=== PATIENT | male | born 1980 | race Caucasian/White ===

== ENCOUNTER 2016-11-17 13:13 | Inpatient (IN) | payer OTHER ==
[~2016-11-17] VITALS: Ht 162.6 cm; Wt 79.0 kg
[2016-11-17] MEDS ORDERED: LTHSR/300 PO (14:00)
[2016-11-17] MEDS ORDERED: ACET-749 PO (14:00)
[2016-11-17] MEDS ORDERED: RMR15 PO (14:00)
[2016-11-17] MEDS ORDERED: AMOX875T PO (14:00)
[2016-11-17] MEDS ORDERED: [UNRECOGNIZED DRUG - OTHER] INJ (14:00)
[2016-11-17] MEDS ORDERED: HYDR50CA2 PO (14:00)
[2016-11-17] MEDS ORDERED: AMPICILLIN/SULBACTAM SOD INJ 3,000 MG in SODIUM CHLORIDE 0.9% 100ML 100 ML IV STA (14:19)
[2016-11-17] MEDS ORDERED: SODIUM CHLORIDE 0.9% 1000ML 1,000 ML IV STA (14:19)
[2016-11-17] MEDS ORDERED: ONDANSETRON INJ 2 MG/ML 2 ML VIAL IV STA (14:50)
[2016-11-17] MEDS ORDERED: MoRPHine SULFATE 4 MG/ML 1 ML CARP\\VIAL IV STA (14:50)
[2016-11-17 15:05] LABS: BASO % 0.2 %; BASO ABS # 0.01 K/uL (0-0.2); COMPLETE YES; EOS % 0.9 %; HEMATOCRIT 45.4 % (42-52); IG% 0.2 %; LYMPH % 30.2 %; LYMPH ABS # 1.65 K/uL (1.2-3.4); MEAN CELL VOLUME 87.3 fL (80-100); MEAN CORPUSCULAR HEMOGLOBIN 30.6 pg (25-34); MEAN PLATELET VOLUME 9.6 fL (7.4-10.4); MONO % 8.8 %; NEUT % 59.7 %; PLATELET COUNT 230 K/uL (130-400); WHITE BLOOD COUNT 5.47 K/uL (4.8-10.8)
[2016-11-17 15:21] LABS: BUN/CREATININE RATIO 16.6 (10-20); CALCIUM 8.5 mg/dl (8.5-10.1); CREATININE 0.89 mg/dl (0.60-1.40); POTASSIUM 4.2 mmol/L (3.5-5.1)
[2016-11-17] MEDS ORDERED: DIPHTHERIA/TETANUS/PERTUSSIS 0.5 ML SYR/VIAL IM. ONE (15:30)
--- NOTE | 2016-11-17 16:11 | DIAGNOSTIC IMAGING REPORT ---
RIGHT FOOT 3 VIEWS CLINICAL HISTORY: First toe infection. FINDINGS: 3 views of the right foot are obtained. No prior studies are available for comparison at the time of dictation. The skeletal structures are well mineralized. No fracture is seen. No bony erosion or periostitis is identified. The joint spaces are preserved. Soft tissue edema is present in the forefoot. IMPRESSION: Soft tissue edema is noted in the forefoot. No acute bony abnormality is identified. Electronically signed by: Arie Vernon M.D. 11/17/2016 4:10 PM Dictated Date/Time: 11/17/2016 4:08 PM
--- NOTE | 2016-11-17 16:47 | EMERGENCY ROOM VISIT NOTE ---
History First contact with patient: 14:11 Chief Complaint: INFECTION Stated Complaint: RIGHT FOOT/TOE IS INFECTED Nursing Triage Summary: Swelling to the foot and ankle. Right great toe with cut ingrown toenail. Pulse present History of Present Illness The patient is a 36 year old male who presents to the Emergency Room via escort by 2 guards with complaints of "right foot/toe is infected". The patient states that 3 months ago he had an ingrown toenail of which she removed with nail clippers on his own. He states then that it began to hurt and pus began to be discharged from the toe. He then became concerned and put in for a sick call with the medical staff. He notes that he was placed upon antibiotics for 10 days, and went back because it persisted and was worse therefore he was placed on a different antibiotic for another 10 days. He states then 2 or 3 days ago while at [facility] he had the nail partially removed and replaced about on Augmentin. He has been on the Augmentin for 2 or 3 days with minimal improvement. He notes today that the toe as well as the right foot up to the ankle is now painful, swollen and hot to the touch. He is not sure if there is any drainage over the past 2 days as it has been covered with a bandage. He denies any fevers, chills, nausea, vomiting, chest pain, shortness of breath, abdominal pain. He rates the overall pain in the toe and foot as a 10/10. One of the accompanied Guards confirms the patient's tetanus status is not up-to- date. The patient has been referred here and noted to initially be on doxycycline starting on 11/06/2016 through 11/15/2016. He was then started on Augmentin 500/ 125 twice a day on 11/16/2016 and is to end this on 11/26/2016. There is concern for osteomyelitis. Review of Systems A complete 10-point Review of Systems was discussed with the patient, with pertinent positives and negatives listed in the History of Present Illness. All remaining Review of Systems questions can be considered negative unless otherwise specified. Past Medical/Surgical History Medical Problems: (1) acute on chronic right toe infection/cellulitis Hepatitis C Family History Unremarkable Social History Smoking Status: Never Smoker Social History: Patient is currently incarcerated at [facility]. Current/Historical Medications Scheduled Amoxicillin & Pot Clavulanate (Augmentin 875-125 mg), 1 TAB PO BID Hydroxyzine Pamoate (Vistaril), 50 MG PO HS [place] Carbonate ([place] Carbonate), 300 MG PO BID Lorazepam (Lorazepam), 1 MG INJ DAILY Mirtazapine (Mirtazapine), 30 MG PO HS Scheduled PRN Acetaminophen/Codeine (Tylenol W/Codeine #3), 2 TAB PO TID PRN for Pain Allergies Coded Allergies: Fish (Unverified Allergy, Unknown, UNKNOWN, 11/17/16) Physical Exam Vital Signs Date Time Temp Pulse Resp B/P Pulse Ox O2 Delivery O2 Flow Rate FiO2 11/17/16 17:01 68 18 107/76 98 Room Air 11/17/16 15:29 76 18 100/60 94 Room Air 11/17/16 13:22 36.9 83 18 109/67 94 Room Air Physical Exam VITAL SIGNS - Vital signs and nursing notes were reviewed. The patient is afebrile, normotensive, non-tachycardic and is saturating well on room air 94%. GENERAL -36-year-old male appearing his stated age who is in no acute distress. Communicates well with provider and answers questions appropriately. SKIN -the right great toe is erythematous and edematous without purulent discharge at this time. There is tenderness of this region as well as into the right foot and medial ankle. There is no lymphangitic streaking noted. HEAD - NC/AT. EXTREMITIES - No clubbing or peripheral cyanosis. No pretibial edema present. Patient is neurovascularly intact in the right lower extremity. +5/5 strength noted in UE/LE bilaterally. Medical Decision & Procedures ER Provider Diagnostic Interpretation: [~ rep ct add3]] RIGHT FOOT 3 VIEWS CLINICAL HISTORY: First toe infection. FINDINGS: 3 views of the right foot are obtained. No prior studies are available for comparison at the time of dictation. The skeletal structures are well mineralized. No fracture is seen. No bony erosion or periostitis is identified. The joint spaces are preserved. Soft tissue edema is present in the forefoot. IMPRESSION: Soft tissue edema is noted in the forefoot. No acute bony abnormality is identified. Electronically signed by: Arie Vernon M.D. 11/17/2016 4:10 PM Dictated Date/Time: 11/17/2016 4:08 PM Laboratory Results 11/17/16 14:45 Red Blood Count 5.20, Mean Corpuscular Volume 87.3, Mean Corpuscular Hemoglobin 30.6, Mean Corpuscular Hemoglobin Concent 35.0, Mean Platelet Volume 9.6, Neutrophils (%) (Auto) 59.7, Lymphocytes (%) (Auto) 30.2, Monocytes (%) (Auto) 8.8, Eosinophils (%) (Auto) 0.9, Basophils (%) (Auto) 0.2, Neutrophils # (Auto) 3.27, Lymphocytes # (Auto) 1.65, Monocytes # (Auto) 0.48, Eosinophils # (Auto) 0.05, Basophils # (Auto) 0.01 11/17/16 14:45 Test 11/17/16 14:45 White Blood Count 5.47 K/uL (4.8-10.8) Red Blood Count 5.20 M/uL (4.7-6.1) Hemoglobin 15.9 g/dL (14.0-18.0) Hematocrit 45.4 % (42-52) Mean Corpuscular Volume 87.3 fL (80-100) Mean Corpuscular Hemoglobin 30.6 pg (25-34) Mean Corpuscular Hemoglobin Concent 35.0 g/dl (32-36) Platelet Count 230 K/uL (130-400) Mean Platelet Volume 9.6 fL (7.4-10.4) Neutrophils (%) (Auto) 59.7 % Lymphocytes (%) (Auto) 30.2 % Monocytes (%) (Auto) 8.8 % Eosinophils (%) (Auto) 0.9 % Basophils (%) (Auto) 0.2 % Neutrophils # (Auto) 3.27 K/uL (1.4-6.5) Lymphocytes # (Auto) 1.65 K/uL (1.2-3.4) Monocytes # (Auto) 0.48 K/uL (0.11-0.59) Eosinophils # (Auto) 0.05 K/uL (0-0.5) Basophils # (Auto) 0.01 K/uL (0-0.2) RDW Standard Deviation 42.3 fL (36.4-46.3) RDW Coefficient of Variation 13.2 % (11.5-14.5) Immature Granulocyte % (Auto) 0.2 % Immature Granulocyte # (Auto) 0.01 K/uL (0.00-0.02) Erythrocyte Sedimentation Rate 3 mm/hr (0-14) Prothrombin Time 10.7 SECONDS (9.0-12.0) Prothromb Time International Ratio 1.0 (0.9-1.1) Activated Partial Thromboplast Time 26.8 SECONDS (21.0-31.0) Partial Thromboplastin Ratio 1.0 Anion Gap 6.0 mmol/L (3-11) Est Creatinine Clear Calc Drug Dose 111.1 ml/min Estimated GFR () 129.3 Estimated GFR (Non- 111.6 BUN/Creatinine Ratio 16.6 (10-20) Uric Acid 4.3 mg/dl (2.6-7.2) Calcium Level 8.5 mg/dl (8.5-10.1) C-Reactive Protein 0.51 mg/dl (0-0.29) Medications Administered Medications (Trade) Dose Ordered Sig/Radha Route Start Time Stop Time Status Last Admin Dose Admin Sodium Chloride 1,000 ml @ 999 mls/hr Q1H1M STAT IV 11/17/16 14:19 11/17/16 15:19 DC 11/17/16 14:19 999 MLS/HR Ampicillin Sodium/ Sulbactam Sodium/ Sodium Chloride (Unasyn Inj/Nss 100ml) 108 ml @ 200 mls/hr NOW STAT IV 11/17/16 14:19 11/17/16 14:51 DC 11/17/16 15:25 200 MLS/HR Morphine Sulfate (MoRPHine SULFATE INJ) 4 mg NOW STAT IV 11/17/16 14:50 11/17/16 14:51 DC 11/17/16 15:24 4 MG Ondansetron HCl (Zofran Inj) 4 mg NOW STAT IV 11/17/16 14:50 11/17/16 14:51 DC 11/17/16 15:24 4 MG Diphtheria/ Pertussis/Tetanus Vacc (Adacel Inj) 0.5 ml ONCE ONCE IM. 11/17/16 15:30 11/17/16 15:31 DC 11/17/16 15:25 0.5 ML Acetaminophen (Tylenol Tab) 500 mg NOW STAT PO 11/17/16 16:49 11/17/16 16:50 DC 11/17/16 16:58 500 MG Medical Decision Patient was seen and evaluated as above. After obtaining a thorough history and physical examination is apparent the patient had failed outpatient management on oral antibiotics. He presents with what appears to be an infection of the right great toe with edema and warmth extending into the foot and right ankle. Stat IV access was obtained, he was hydrated with a liter of normal saline and 3 g Unasyn were obtained after verifying no allergies. He did request something for pain therefore was given morphine and Zofran for any potential nausea. His vital signs are stable, with no evidence of sepsis, however blood cultures were drawn given the case presentation. His CBC is completed and unremarkable. PRP reveal slight elevation of chloride. Stable kidney function. Kidney function was assessed to verify ability to process IV medication. The patient then noted that immediately after receiving morphine he developed a headache, of which was not the worst of his life. He'll be given 500 mg of Tylenol for that pain. He was also given ice for the foot. Radiograph does not reveal any evidence of osteomyelitis. Given the patient has been on antibiotics for some time, I do believe it is appropriate to further his care with inpatient management and IV antibiotics. The case was discussed with my attending, and the decision was made to admit the patient for further evaluation and management. At 4:37 PM I did discuss the case with Dr. Horta, hospitalist who agreed to evaluate the patient for further care and management. Please refer to further documentation by hospital staff regarding his stay. I do believe he is stable for admission. Patient notes his tetanus is not up-to-date and therefore he was given an Adacel injection. Upon examination there is evidence of cellulitis of the right great toe extending into the foot, without evidence of drainable abscess. In the evaluation and treatment of this patient the following differential diagnoses were entertained: Cellulitis, sepsis, abscess, contusion, among others. Impression Primary Impression: Cellulitis of toe of right foot Departure Information Dispostion Admitted as an inpatient Condition FAIR Referrals Johnathan DORANTES (PCP) Patient Instructions My [facility]
[2016-11-17] MEDS ORDERED: ACETAMINOPHEN 500 MG TAB PO STA (16:49)
[2016-11-17 17:01] VITALS: O2SAT 98
[2016-11-17] MEDS ORDERED: ZOLPIDEM TARTRATE 5 MG TAB PO PRN (17:15)
[2016-11-17] MEDS ORDERED: ONDANSETRON INJ 2 MG/ML 2 ML VIAL IV PRN (17:15)
[2016-11-17] MEDS ORDERED: ALUMINUM/MAGNESIUM/SIMETH (MAALOX MAX) 30 ML UDC PO PRN (17:15)
[2016-11-17] MEDS ORDERED: MAGNESIUM HYDROXIDE SUSP 30 ML UDC PO PRN (17:15)
[2016-11-17] MEDS ORDERED: ACETAMINOPHEN 325 MG TAB PO PRN (17:15)
--- NOTE | 2016-11-17 17:32 | History and Physical ---
History & Physical Date of Service Nov 17, 2016. History & Physical acute on chronic right toe infection/cellulitis, [id number]
[2016-11-17 17:41] LABS: C-REACTIVE PROTEIN 0.51 mg/dl (0-0.29); URIC ACID 4.3 mg/dl (2.6-7.2)
[2016-11-17] MEDS ORDERED: POLYETHYLENE (MIRALAX) 17 GM PACK PO PRN (18:00)
[2016-11-17] MEDS: ACETAMINOPHEN/CODEINE 300/30MG TAB PO PRN (18:14)
[2016-11-17 18:17] LABS: PROTHROMBIN TIME (PATIENT) 10.7 SECONDS (9.0-12.0)
--- NOTE | 2016-11-17 18:40 | HISTORY & PHYSICAL EXAMINATION ---
DATE OF ADMISSION: 11/17/2016 This is a level 2 inpatient admission, 31 minutes. CHIEF COMPLAINT: Right toe infection. HISTORY OF PRESENT ILLNESS: The patient is a 36-year-old white male, coming with the above chief complaint. He reported history of hepatitis C. He complained about right toe infected. The right toe has problem starting from 3 months ago with ingrowing toenails which was removed with nail clippers on his own. He states it began to hurt and pus began to discharge from the toe. He was placed on antibiotics for 10 days, but condition of pain, redness and pus persisted. He was treated with Augmentin for 2-3 days with only minimal improvement. Two days ago, the toe was seen by a PA in [facility] He had the toenail partially removed. Like I mentioned, he has been on Augmentin for 2 days. Today, patient reports right toe has more swelling, hot and tender associated with expansion of the erythema and redness through the total foot and up to the right ankle. He denied fever or chills. Denied cough, sputum, shortness of breath or palpitation. Denied chest pain or lower extremity swelling. Denied nausea, vomiting, abdominal pain, diarrhea or constipation. Denied dysuria, urgency or frequencies. Denied facial droop or slurry speeches. In the Emergency Room, he was given Unasyn. PAST MEDICAL HISTORY: Includes hepatitis C. FAMILY HISTORY: Not remarkable. SOCIAL HISTORY: Never smoked. Denied alcohol abuse disorder, denied illicit drug abuse. MEDICATIONS: Prior to admission include; Augmentin 875/125 mg one tab p.o. b.i.d., Vistaril 50 mg p.o. at bedtime, lithium carbonate 300 mg p.o. b.i.d., lorazepam 1 mg p.o. daily, mirtazapine 30 mg p.o. at bedtime. As needed medications include Tylenol with codeine 2 tabs p.o. t.i.d. p.r.n. for the pain. ALLERGIES: TO FISH. REVIEW OF SYSTEMS: Please see HPI, otherwise 14-point organ system review negative. PHYSICAL EXAMINATION: VITAL SIGNS: Temperature is 36.9, pulse 83, respiratory rate 18, blood pressure 109/67, pulse ox was 94% on room air. GENERAL: The patient is a white male, awake, alert and orientated. Vital signs are stable, afebrile. HEAD: Normocephalic. EYES: Pupils are equal, round and responds to light. EARS: Normal. NOSE: Normal. NECK: Supple. Thyroid; no enlargement. Trachea; midline. LUNGS: Decreased breathing sounds. There was no wheezing, rhonchi or crackles. ABDOMEN: Soft, nontender. Bowel sound was positive. Bilateral CVA was nontender HEART: Regular rhythm S1, S2, has no murmur. GENITOURINARY AND RECTAL: Deferred. EXTREMITIES: Left lower extremity was not remarkable. Right toe has drainage in the tip with erythema and swelling and hot and tender. Like I mentioned, the erythema and swelling was throughout the whole foot and up to the ankle area and mild tenderness. There was mild swelling in the calf area. NEUROLOGIC: Cranial nerve II-XII was intact. There was no local deficits. LABORATORY STUDIES: WBC 5.7, hemoglobin 15, platelet 230,000. Neutrophil was 59%. BMP was within normal limits. IMAGING STUDIES: Foot x-ray which was done in the Emergency Room, there was some soft tissue edema noted in the forefoot. No acute bony abnormalities identified. ASSESSMENT AND PLAN: A 36-year-old white male, with the condition as seen below: 1. Right toe chronic infection, getting worse, associated with right foot and ankle cellulitis. 2. Failed outpatient oral antibiotic treatment. 3. Possible anxiety and depression. Because of the right toe chronic infection which is getting worse, it has been 3 months; I will order MRI to rule out osteomyelitis. Because the right calf has some swelling and red, I want to order Doppler ultrasound to rule out DVT. There was obvious cellulitis and infection going on. Other differential diagnoses include gout. Therefore, I will check uric acid levels. We will continue Unasyn IV. We will check ESR and CRP and we will see the response. DVT prophylaxis is covered. GI prophylaxis is covered. will follow up MRI results. I did not order podiatry consult or infectious disease consult yet, but if needed will request their help. I discussed with patient about the care plan. I answered all the questions. LISA
[2016-11-17 18:43] VITALS: BP 102/70; PULSE 76; TEMP 37.2; Ht 162.6 cm; Wt 79.0 kg
[2016-11-17] MEDS: hydrOXYzine HCL 25 MG TAB PO SCH (20:52)
[2016-11-17] MEDS: LITHIUM CARBONATE 300 MG TAB PO SCH (20:53)
[2016-11-17] MEDS: MIRTAZAPINE TAB 15 MG TAB PO SCH (20:54)
[2016-11-17] MEDS: ENOXAPARIN 40 MG/0.4 ML SYR SQ SCH (20:55)
--- NOTE | 2016-11-17 21:36 | DIAGNOSTIC IMAGING REPORT ---
ULTRASOUND RIGHT LOWER EXTREMITY VENOUS CLINICAL HISTORY: Right toe infection. COMPARISON STUDY: No priors. TECHNIQUE: Real-time, grayscale, and color Doppler sonography of the deep veins of the right lower extremity was performed from the inguinal crease to the calf. Compression and augmentation were utilized. FINDINGS: There is no sonographic evidence of deep venous thrombosis identified in the right lower extremity. The common femoral, superficial femoral, and popliteal veins are patent and normally compressible. The greater saphenous vein and the profunda femoris vein at the junction with the common femoral vein are clear. The visualized calf veins are patent. IMPRESSION: There is no sonographic evidence of deep venous thrombosis identified in the right lower extremity. Electronically signed by: Arie Vernon M.D. 11/17/2016 9:35 PM Dictated Date/Time: 11/17/2016 9:35 PM
[2016-11-17] MEDS: AMPICILLIN/SULBACTAM SOD INJ 3,000 MG in SODIUM CHLORIDE 0.9% 100ML 100 ML IV SCH (22:42)
[2016-11-17] MEDS ORDERED: GADAVIST IV PRN (22:45)
--- NOTE | 2016-11-17 22:50 | DIAGNOSTIC IMAGING REPORT ---
MRI RIGHT FOREFOOT COMBO CLINICAL HISTORY: Soft tissue infection. COMPARISON STUDY: Radiographs of the right foot dated 11/17/2016. TECHNIQUE: MRI of the right forefoot is performed utilizing various T1 and T2-weighted sequences in the axial, sagittal, and coronal planes. Contrast-enhanced sequences are acquired following the IV administration of 8 cc of Gadavist. FINDINGS: There is no marrow signal abnormality identified typical for osteomyelitis. Mild arthritic change is seen at the first metatarsophalangeal joint. No additional foci of marrow signal abnormality are identified. There is mild soft tissue induration identified in the first toe with nonspecific patchy abnormal enhancement. The appearance suggests cellulitis. No organized fluid collection is seen. No definite ulceration is identified. The regional musculature is normal in bulk and signal intensity. The visualized flexor and extensor tendons appear intact. IMPRESSION: 1. Findings suggest cellulitis of the first toe. 2. There is no MRI evidence of osteomyelitis. Electronically signed by: Arie Vernon M.D. 11/17/2016 10:48 PM Dictated Date/Time: 11/17/2016 10:43 PM
[2016-11-17 23:46] VITALS: BP 100/68; PULSE 75; TEMP 36.8; O2SAT 96
[2016-11-18] MEDS: ACETAMINOPHEN/CODEINE 300/30MG TAB PO PRN ×2 (00:55→13:48)
[2016-11-18] MEDS: AMPICILLIN/SULBACTAM SOD INJ 3,000 MG in SODIUM CHLORIDE 0.9% 100ML 100 ML IV SCH ×4 (03:35→21:55)
[2016-11-18 07:59] VITALS: BP 89/52; PULSE 62; TEMP 36.9; O2SAT 98
[2016-11-18] MEDS: LITHIUM CARBONATE 300 MG TAB PO SCH ×2 (08:08→20:58)
--- NOTE | 2016-11-18 11:13 | Progress Note ---
Subjective Date of Service: Nov 18, 2016. Subjective Pt evaluation today including: conversation w/ patient, physical exam, chart review, lab review, review of inpatient medication list no fevers. still having right toe pain. no chest pain, no sob. no significant medical history reported other than Hep C Problem List Medical Problems: (1) Cellulitis of toe of right foot Status: Acute Review of Systems All Other Systems: Reviewed and Negative Medications Acetaminophen (Tylenol Tab) 650 mg Q4H PRN PO; Start 11/17/16 at 17:15; Stop at 17:14 Acetaminophen/ Codeine Phosphate (Tylenol w/ Codeine #3 Tab) 2 tab TID PRN PO Last administered on 11/18/16 00:55; Admin Dose 2 TAB; Start 11/17/16 at 17:45; Stop 12/17/16 at 17:44 Al Hydrox/Mg Hydrox/Simethicone (Maalox Max Susp) 15 ml Q4H PRN PO; Start at 17:15; Stop 12/17/16 at 17:14 Ampicillin Sodium/ Sulbactam Sodium/ Sodium Chloride (Unasyn Inj/Nss 100ml) 108 ml @ 200 mls/hr Q6H IV Last administered on 11/18/16 10:32; Admin Dose 200 MLS/ HR; Start 11/17/16 at 22:00; Stop 11/27/16 at 21:59 Enoxaparin Sodium (Lovenox Inj) 40 mg Q24H SQ Last administered on 11/17/16 20: 55; Admin Dose 40 MG; Start 11/17/16 at 21:00; Stop 12/17/16 at 20:59 Gadobutrol (Gadavist) 8 mmol UD PRN IV; Start 11/17/16 at 22:45; Stop 11/21/16 at 22:44 Hydroxyzine HCl (Vistaril Tab) 50 mg HS PO Last administered on 11/17/16 20:52; Admin Dose 50 MG; Start 11/17/16 at 21:00; Stop 12/17/16 at 20:59 [place] Carbonate ([place] Carbonate Tab) 300 mg BID PO Last administered on 11/18 08:08; Admin Dose 300 MG; Start 11/17/16 at 21:00; Stop 12/17/16 at 20:59 Magnesium Hydroxide (Milk Of Magnesia Susp) 30 ml Q6H PRN PO; Start 11/17/16 at 17:15; Stop 12/17/16 at 17:14 Mirtazapine (Remeron Tab) 30 mg HS PO Last administered on 11/17/16t 20:54; Admin Dose 30 MG; Start 11/17/16 at 21:00; Stop 12/17/16 at 20:59 Ondansetron HCl 4 mg 4 mg Q6H PRN IV; Start 11/17/16 at 17:15; Stop 12/17/16 at 17:14 Polyethylene (Miralax Powder Packet) 17 gm DAILY PRN PO; Start 11/17/16 at 18:00 ; Stop 12/17/16 at 17:59 Zolpidem Tartrate (Ambien Tab) 5 mg HSZ PRN PO; Start 11/17/16 at 17:15; Stop at 17:14 Objective Vital Signs Date Time Temp Pulse Resp B/P Pulse Ox O2 Delivery O2 Flow Rate FiO2 11/18/16 08:30 Room Air 11/18/16 07:59 36.9 62 16 89/52 98 Room Air 11/18/16 00:00 Room Air 11/17/16 23:46 36.8 75 20 100/68 96 Room Air 11/17/16 18:43 37.2 76 18 102/70 Room Air 11/17/16 17:01 68 18 107/76 98 Room Air 11/17/16 15:29 76 18 100/60 94 Room Air 11/17/16 13:22 36.9 83 18 109/67 94 Room Air Physical Exam Comments: nad, aox3 eomi, perrl s1 s2 rrr, no murmurs appreciated ctab no w/r/r abd soft nt/nd +BS right foot pedal edema, good DP 2+ bilat, good cap refill right hallux swelling noted with erythema cn2-12 grossly intact Laboratory Results Last 24 Hours Test 11/17/16 14:45 11/17/16 19:13 White Blood Count 5.47 K/uL Red Blood Count 5.20 M/uL Hemoglobin 15.9 g/dL Hematocrit 45.4 % Mean Corpuscular Volume 87.3 fL Mean Corpuscular Hemoglobin 30.6 pg Mean Corpuscular Hemoglobin Concent 35.0 g/dl Platelet Count 230 K/uL Mean Platelet Volume 9.6 fL Neutrophils (%) (Auto) 59.7 % Lymphocytes (%) (Auto) 30.2 % Monocytes (%) (Auto) 8.8 % Eosinophils (%) (Auto) 0.9 % Basophils (%) (Auto) 0.2 % Neutrophils # (Auto) 3.27 K/uL Lymphocytes # (Auto) 1.65 K/uL Monocytes # (Auto) 0.48 K/uL Eosinophils # (Auto) 0.05 K/uL Basophils # (Auto) 0.01 K/uL RDW Standard Deviation 42.3 fL RDW Coefficient of Variation 13.2 % Immature Granulocyte % (Auto) 0.2 % Immature Granulocyte # (Auto) 0.01 K/uL Erythrocyte Sedimentation Rate 3 mm/hr Prothrombin Time 10.7 SECONDS Prothromb Time International Ratio 1.0 Activated Partial Thromboplast Time 26.8 SECONDS Partial Thromboplastin Ratio 1.0 Sodium Level 144 mmol/L Potassium Level 4.2 mmol/L Chloride Level 108 mmol/L Carbon Dioxide Level 30 mmol/L Anion Gap 6.0 mmol/L Blood Urea Nitrogen 15 mg/dl Creatinine 0.89 mg/dl Est Creatinine Clear Calc Drug Dose 111.1 ml/min Estimated GFR () 129.3 Estimated GFR (Non- 111.6 BUN/Creatinine Ratio 16.6 Random Glucose 93 mg/dl Uric Acid 4.3 mg/dl Calcium Level 8.5 mg/dl C-Reactive Protein 0.51 mg/dl [place] Level 0.2 mMOL/L RIGHT FOOT 3 VIEWS CLINICAL HISTORY: First toe infection. FINDINGS: 3 views of the right foot are obtained. No prior studies are available for comparison at the time of dictation. The skeletal structures are well mineralized. No fracture is seen. No bony erosion or periostitis is identified. The joint spaces are preserved. Soft tissue edema is present in the forefoot. IMPRESSION: Soft tissue edema is noted in the forefoot. No acute bony abnormality is identified. Electronically signed by: Arie Vernon M.D. 11/17/2016 4:10 PM ULTRASOUND RIGHT LOWER EXTREMITY VENOUS CLINICAL HISTORY: Right toe infection. COMPARISON STUDY: No priors. TECHNIQUE: Real-time, grayscale, and color Doppler sonography of the deep veins of the right lower extremity was performed from the inguinal crease to the calf. Compression and augmentation were utilized. FINDINGS: There is no sonographic evidence of deep venous thrombosis identified in the right lower extremity. The common femoral, superficial femoral, and popliteal veins are patent and normally compressible. The greater saphenous vein and the profunda femoris vein at the junction with the common femoral vein are clear. The visualized calf veins are patent. IMPRESSION: There is no sonographic evidence of deep venous thrombosis identified in the right lower extremity. Electronically signed by: Arie Vernon M.D. 11/17/2016 9:35 PM MRI RIGHT FOREFOOT COMBO CLINICAL HISTORY: Soft tissue infection. COMPARISON STUDY: Radiographs of the right foot dated 11/17/2016. TECHNIQUE: MRI of the right forefoot is performed utilizing various T1 and T2-weighted sequences in the axial, sagittal, and coronal planes. Contrast-enhanced sequences are acquired following the IV administration of 8 cc of Gadavist. FINDINGS: There is no marrow signal abnormality identified typical for osteomyelitis. Mild arthritic change is seen at the first metatarsophalangeal joint. No additional foci of marrow signal abnormality are identified. There is mild soft tissue induration identified in the first toe with nonspecific patchy abnormal enhancement. The appearance suggests cellulitis. No organized fluid collection is seen. No definite ulceration is identified. The regional musculature is normal in bulk and signal intensity. The visualized flexor and extensor tendons appear intact. IMPRESSION: 1. Findings suggest cellulitis of the first toe. 2. There is no MRI evidence of osteomyelitis. Electronically signed by: Arie Vernon M.D. 11/17/2016 10:48 PM Assessment and Plan 1. right toe cellulitis - MRI without e/o osteomyelitis - no drainable abscess - failed doxy outpatient - cont augmentin for now and monitor for improvement - MRSA screening negative - pain regimen prn 2. mood disorder - cont lithium - cont remeron 3. dvt ppx
[2016-11-18 11:36] VITALS: BP 102/65; PULSE 80
[2016-11-18 15:11] VITALS: BP 104/69; PULSE 75; TEMP 36.9; O2SAT 96
[2016-11-18] MEDS: hydrOXYzine HCL 25 MG TAB PO SCH (20:58)
[2016-11-18] MEDS: MIRTAZAPINE TAB 15 MG TAB PO SCH (20:59)
[2016-11-18] MEDS: ENOXAPARIN 40 MG/0.4 ML SYR SQ SCH (20:59)
[2016-11-19 00:12] VITALS: BP 101/64; PULSE 64; TEMP 36.7; O2SAT 96
[2016-11-19] MEDS: AMPICILLIN/SULBACTAM SOD INJ 3,000 MG in SODIUM CHLORIDE 0.9% 100ML 100 ML IV SCH ×2 (03:34→09:24)
[2016-11-19 07:21] VITALS: BP 110/65; PULSE 76; TEMP 36.7; O2SAT 96
[2016-11-19] MEDS ORDERED: CLIN300C2 PO (09:21)
[2016-11-19] MEDS: LITHIUM CARBONATE 300 MG TAB PO SCH (09:23)
--- NOTE | 2016-11-19 09:25 | Discharge Instructions ---
Discharge Instructions Admission Reason for Admission: Acute On Chronic Right Toe Infection/Cellulitis Discharge Discharge Diagnosis / Problem: Right great toe cellulitis, toe nail infection Discharge Goals Goal(s): Decrease discomfort, Improve function, Therapeutic intervention ( recommend outpatient podiatry referral) Activity Recommendations Activity Limitations: resume your previous activity Lifting Limitations: none Exercise/Sports Limitations: as tolerated May Resume Sexual Activity: when tolerated Shower/Bathe: no limitations Driving or Machine Use: no limitations . Instructions / Follow-Up Instructions / Follow-Up Medications: - continue Augmentin and Clindamycin for 7 day course for treatment of the cellulitis Right great toe cellulitis: MRI showed NO evidence of osteomyelitis and drainable abscess. At this point the patient is afebrile, normal WBC and his right toe, while swollen and tender, shows no erythema and temperature of the foot is normal. I would recommend continuing an additional course of antibiotics and would follow up with podiatry as outpatient for more definitive care of the toenail FOLLOW UP - physician at [facility] in one week - refer to podiatry as outpatient Current Hospital Diet Patient's current hospital diet: Regular Diet Discharge Diet Recommended Diet: Regular Diet Pending Studies Studies pending at discharge: no Laboratory Results Last Resulted CBC 11/17/16 14:45 Red Blood Count 5.20, Mean Corpuscular Volume 87.3, Mean Corpuscular Hemoglobin 30.6, Mean Corpuscular Hemoglobin Concent 35.0, Mean Platelet Volume 9.6, Neutrophils (%) (Auto) 59.7, Lymphocytes (%) (Auto) 30.2, Monocytes (%) (Auto) 8.8, Eosinophils (%) (Auto) 0.9, Basophils (%) (Auto) 0.2, Neutrophils # (Auto) 3.27, Lymphocytes # (Auto) 1.65, Monocytes # (Auto) 0.48, Eosinophils # (Auto) 0.05, Basophils # (Auto) 0.01 Last Resulted BMP 11/17/16 14:45 Medical Emergencies . Who to Call and When: Medical Emergencies: If at any time you feel your situation is an emergency, please call 911 immediately. . Non-Emergent Contact Non-Emergency issues call your: Primary Care Provider Call Non-Emergent contact if: you have a fever, your pain is worsening, you have any medication questions . . "Provider Documentation" section prepared by Obdulio Mello. VTE Core Measure Inpt VTE Proph given/why not?: Enoxaparin (Lovenox)SQ [place] Drug Monitoring Program Search Results: no issues identified
[2016-11-19 09:28] VITALS: BP 110/65; PULSE 76; TEMP 36.7; O2SAT 96
--- NOTE | 2016-11-19 15:33 | Discharge Summary ---
Discharge Summary Date of Service Nov 19, 2016. Discharge Summary Admission Date: Nov 17, 2016 at 17:22 Discharge Date: Nov 19, 2016 Discharge Disposition: Personal care (correction) Principal Diagnosis: Right great toe cellulitis Procedures: none Consultations: none Medication Reconciliation New Medications: Clindamycin Hcl (Cleocin) 300 Mg Cap 1 CAP PO TID for 7 Days, #21 CAP Continued Medications: Acetaminophen/Codeine (Tylenol W/Codeine #3) 300 Mg/30 Mg Tab 2 TAB PO TID PRN for Pain, TAB Amoxicillin & Pot Clavulanate (Augmentin 875-125 mg) 1 Tab Tab 1 TAB PO BID, #14 TAB Hydroxyzine Pamoate (Vistaril) 50 Mg Cap 50 MG PO HS, CAP PRN ITCH Culver Carbonate (Culver Carbonate) 300 Mg Cap 300 MG PO BID, CAP Lorazepam (Lorazepam) 2 Mg/Ml Inj 1 MG INJ DAILY Mirtazapine (Mirtazapine) 15 Mg Tab 30 MG PO HS Discharge Exam Patient still with some pain in right great toe, less redness, minimal warmth. Reviewed that testing failed to show any signs of osteomyelitis or abscess. No evidence of DVT on ultrasound. Recommended that he return to [facility] and continue dual antibiotic therapy and follow up with a professor of biostatistics if the toe continued to give him problems. Review of Systems: Constitutional: No chills, No fatigue, No fever, No problem reported, No sweats, No weakness, No weight loss Eyes: No diplopia, No discharge, No eye pain, No problem reported, No redness, No worsening of vision ENT: No dental problems, No hearing loss, No nasal symptoms, No problem reported, No sore throat, No tinnitus, No trouble swallowing, No unusual epistaxis Respiratory: No cough, No dyspnea at rest, No dyspnea on exertion, No hemoptysis, No problem reported, No shortness of breath, No sputum, No wheezing Cardiovascular: No PND, No chest pain, No claudication, No edema, No orthopnea, No palpitations, No problem reported Abdomen: No GI bleeding, No constipation, No diarrhea, No nausea, No pain, No problem reported, No vomiting Musculoskeletal: No calf pain, No joint pain, No muscle pain, No problem reported, No swelling Genitourinary - Male: No dysuria, No hematuria, No urinary frequency, No urinary urgency Neurologic: No balance problems, No memory loss, No numbness/tingling, No paralysis, No problem reported, No vertigo, No weakness Psychiatric: No anhedonism, No anxiety, No depression symptoms, No insomnia , No problem reported, No substance abuse Endocrine: No excessive thirst, No excessive urination, No fatigue, No problem reported Hematologic / Lymphatic: No abnormal bleeding/bruising, No clotting problems , No night sweats, No problem reported, No swollen lymph nodes Integumentary: + problem reported (right great toe with swelling, mild redness, tender to touch) Physical Exam: General Appearance: WD/WN, no apparent distress Eyes: normal inspection, EOMI, sclerae normal ENT: normal ENT inspection, hearing grossly normal, pharynx normal Neck: supple, no adenopathy, no JVD, trachea midline Respiratory/Chest: chest non-tender, lungs clear, normal breath sounds, no respiratory distress, no accessory muscle use Cardiovascular: regular rate, rhythm, no edema, no gallop, no JVD, no murmur , normal peripheral pulses Abdomen / GI: normal bowel sounds, non tender, soft, no organomegaly Extremities: normal inspection, no calf tenderness, normal capillary refill , no pedal edema, normal range of motion, pelvis stable Neurologic/Psychiatric: ointment mill tender II-XII nml as tested, no motor/sensory deficits , alert, normal mood/affect, normal reflexes, oriented x 3 Skin: + pertinent finding (right great toe larger than left great toe, tender to minimal palpation, redness but not extending past toe, no drainage on exam) Lymphatic: no adenopathy Hospital Course 1. right toe cellulitis - MRI with no evidence of osteomyelitis and no abscess - failed doxy outpatient - treat with Unasyn while inpatient - recommend dual antibiotics with Augmentin and Clindamycin - if no improvement in a week then could consider referral to professor of biostatistics as outpatient - MRSA screening negative 2. mood disorder - cont lithium - cont remeron 3. dvt ppx Total Time Spent: Less than 30 minutes This includes examination of the patient, discharge planning, medication reconciliation, and communication with other providers. Discharge Instructions Please refer to the electronic Patient Visit Report (Discharge Instructions) for additional information. Follow-Up Physician at [facility] Johnathan this week possible referral to podiatry if no improvement [facility]
== END 2016-11-19 10:39 | DRG 603 ==
LOC: ENRESERVTM → ENRESERVDT → C.EDB 13:21 → C.MED 17:22
PROVIDERS: ADMIT Hospitalist; ATTEND Internal Medicine
DX: L03.031 Cellulitis of right toe (principal); L03.115 Cellulitis of right lower limb; F39 Unspecified mood [affective] disorder; Z23 Encounter for immunization; Z86.19 Personal history of other infectious and parasitic diseases; Z79.899 Other long term (current) drug therapy